=== PATIENT | male | born 1950 | race Caucasian/White ===

== ENCOUNTER → 2019-12-31 | Outpatient (CLI) | payer MEDICARE, OTHER ==
[~2019-12-31] VITALS: Ht 180 cm; Wt 84.5 kg
[~2019-12-31] MED LIST: ASPI-999 PO; METO-333 PO; MULT-1136 PO
== END | disposition home or self-care (01) ==
LOC: PREOP 05:37
PROVIDERS: ATTEND Radiology Radiation Oncology
DX: Z01.818 Encounter for other preprocedural examination (principal)

== ENCOUNTER 2020-01-05 05:46 | Outpatient (RCR) | payer MEDICARE, OTHER ==
[2020-01-07] MEDS ORDERED: ACET1TAB43 PO (12:34)
[2020-01-07] MEDS ORDERED: CIPR-226 PO (12:34)
== END 2020-01-05 09:41 | disposition home or self-care (01) ==
LOC: ONC 05:46
PROVIDERS: ATTEND Radiology Radiation Oncology
DX: C61 Malignant neoplasm of prostate (principal); I10 Essential (primary) hypertension; Z95.2 Presence of prosthetic heart valve; Z79.82 Long term (current) use of aspirin; Z79.899 Other long term (current) drug therapy
CPT/HCPCS: 76873; G0463; 87635; 99205

== ENCOUNTER 2020-01-07 11:28 | Day surgery (SDC) | payer MEDICARE, OTHER ==
[2020-01-07] VITALS (12 sets, daily range): BP systolic 117–157; BP diastolic 74–93
[~2020-01-07] VITALS: Ht 180 cm; Wt 84.5 kg
[2020-01-07] MEDS ORDERED: LEVOFLOXACIN 500 MG/100 ML IV 100 ML IV ONE (12:15)
[2020-01-07] MEDS ORDERED: CATHETER FLUSH 10 ML SYR IV PRN (12:30)
--- NOTE | 2020-01-07 12:31 | Progress Note-Pre Operative ---
Pre-Operative Progress Note H&P Reviewed The H&P was reviewed, patient examined and no changes noted. Date Seen by Provider: Jan 07, 2020 Time Seen by Provider: 12: Date H&P Reviewed: Jan 07, 2020 Time H&P Reviewed: 12:31 Pre-Operative Diagnosis: Prostate cancer cT2b, PSA 6.7, [place] 7 (3+4) HEIDY GREENFIELD MD Jan 07, 2020 12:31
[2020-01-07] MEDS ORDERED: CIPR-226 PO (12:34)
[2020-01-07] MEDS ORDERED: ACET1TAB43 PO (12:34)
--- NOTE | 2020-01-07 12:36 | Discharge Inst-Simple/Standard ---
Discharge Inst-Standard Reconcile Patient Problems Problems Reviewed?: Yes Discharge Medications New, Converted or Re-Newed RX: RX Given to Pt/Family Patient Instructions/Follow Up Plan of Care/Instructions/FU: 1)One month post implant scan at [facility] cancer center 02/03/20 at 10:00 a.m. 2)Follow up with Dr. Jeong 02/04/20 at 1:00 p.m. Activity as Tolerated: Yes Discharge Diet: No Restrictions Other Inst to Patient Please instruct patient on cummins catheter removal on Sunday01/12/20. HEIDY GREENFIELD MD Jan 07, 2020 12:36
[2020-01-07] MEDS: LACTATED RINGERS 1,000 ML IV PRN ×3 (12:39→15:30)
[2020-01-07] MEDS ORDERED: MIDAZOLAM 2 MG/2 ML (VERSED) VIAL ONE ×2 (12:58→13:41)
[2020-01-07] MEDS ORDERED: MIDAZOLAM 2 MG/2 ML (VERSED) VIAL IV ONE (13:15)
[2020-01-07] MEDS ORDERED: SEVOFLURANE (ULTANE) 15 ML INHAL SOLN ONE ×6 (13:40→14:53)
[2020-01-07] MEDS ORDERED: proPOfol 200 MG/20 ML (DIPRIVAN) VIAL IV ONE (13:40)
[2020-01-07] MEDS ORDERED: LIDOCAINE PF 2% 5 ML (XYLOCAINE) VIAL ONE (13:40)
[2020-01-07] MEDS ORDERED: fentaNYL INJECTION 100 MCG/2 ML AMP ONE (13:40)
[2020-01-07] MEDS ORDERED: ONDANSETRON 4 MG/2 ML (SDV) Z0FRAN ONE (13:40)
[2020-01-07] MEDS ORDERED: BACITRACIN OINTMENT 28 GM TUBE ONE (13:41)
[2020-01-07] MEDS ORDERED: PHENYLEPHRINE 100 MCG/ML 10 ML (ANESTHESIA) SYR ONE (14:20)
[2020-01-07] MEDS ORDERED: MEPERIDINE (DEMEROL) INJ 50 MG/ML IVP ONE (15:30)
[2020-01-07] MEDS ORDERED: fentaNYL INJECTION 100 MCG/2 ML AMP IVP ONE (15:30)
[2020-01-07] MEDS ORDERED: ONDANSETRON 4 MG/2 ML (SDV) Z0FRAN IVP PRN (15:30)
[2020-01-07] MEDS ORDERED: morphine INJ 10 MG/ML 1ML (SYR OR VIAL) IVP ONE (15:30)
--- NOTE | 2020-01-07 15:48 | Anesthesia-General Post-Op ---
General Patient Condition Mental Status/LOC: Same as Preop Cardiovascular: Satisfactory Nausea/Vomiting: Absent Respiratory: Satisfactory Pain: Controlled Complications: Absent Post Op Complications Complications None Follow Up Care/Instructions Patient Instructions None needed. Anesthesia/Patient Condition Patient Condition Patient is doing well, no complaints, stable vital signs, no apparent adverse anesthesia problems. No complications reported per nursing. RUBIA RIOS CRNA Jan 07, 2020 15:48
--- NOTE | 2020-01-07 15:52 | Progress Note-Post Operative ---
Post-Operative Progess Note Surgeon (s)/Ice Sculptor (s) Surgeon HEIDY GREENFIELD MD Ice Sculptor: Sonja OWENS MD Pre-Operative Diagnosis Prostate cancer cT2b, PSA 6.7, [place] 7 (3+4) Post-Operative Diagnosis Same as pre-op Procedure & Operative Findings Date of Procedure 01/07/20 Procedure Performed/Findings (1) 67% Cesium 131 permanent prostate seed implant (2) Injection of biodegradable hydrogel prostate-rectal spacer utilizing the SpaceOAR system (3) Cystogram Prostate volume 39.6 cc Anesthesia Type General Estimated Blood Loss Estimated blood loss (mL): Minimal Specimens/Packing Specimens Removed N/A Packing: N/A HEIDY GREENFIELD MD Jan 07, 2020 15:52
--- NOTE | 2020-01-07 16:17 | Diagnostic Imaging Report ---
INDICATION: Prostate cancer. Intraoperative fluoroscopy used during radiation seed implantation of the prostate gland. Single foci view obtained demonstrates multiple radiation seed implants for prostate gland. 12 seconds of fluoroscopy time was used. IMPRESSION: Intraoperative fluoroscopy view demonstrates radiation seed implantation as described above. Dictated by: Dictated on workstation # [id number]
[2020-01-07] MEDS ORDERED: APAP 300 MG/CODEINE 30 MG (TYLENOL #3) TAB PO ONE (16:45)
[2020-01-07] MEDS ORDERED: APAP 300 MG/CODEINE 30 MG (TYLENOL #3) TAB ONE (16:52)
== END 2020-01-07 17:45 ==
LOC: SDC 11:28
PROVIDERS: ATTEND Radiology Radiation Oncology
DX: C61 Malignant neoplasm of prostate (principal); I10 Essential (primary) hypertension; M06.9 Rheumatoid arthritis, unspecified; G62.9 Polyneuropathy, unspecified; Z79.82 Long term (current) use of aspirin; Z79.899 Other long term (current) drug therapy; Z80.3 Family history of malignant neoplasm of breast
CPT/HCPCS: 55874; 76000; 76965; 77290; 77318; 77332; 77370; 77470; 77778; 87081; C1715 ×2; C2643

== ENCOUNTER → 2020-01-14 | Outpatient (CLI) | payer MEDICARE, OTHER ==
[~2020-01-14] MED LIST changes: +ACET1TAB43 PO; +CIPR-226 PO
--- NOTE | 2020-01-14 12:33 | Diagnostic Imaging Report ---
INDICATION: Incontinence. FINDINGS: Limited pelvic ultrasound was performed to evaluate the bladder. Prevoid bladder volume is approximately 1100 mL. Postvoid volume is essentially unchanged at approximately 1100 mL. No bladder mass or wall thickening is seen. IMPRESSION: Large postvoid residual bladder volume. Dictated by: Dictated on workstation # [id number]
== END ==
LOC: RAD 12:00
PROVIDERS: ATTEND Nurse Practitioner Family
DX: R39.81 Functional urinary incontinence (principal); R35.0 Frequency of micturition
CPT/HCPCS: 76857

== ENCOUNTER 2020-02-05 20:42 | Emergency (ER) | payer MEDICARE, OTHER ==
[~2020-02-05] VITALS: Ht 180 cm; Wt 84.0 kg
[2020-02-05 21:19] LABS: BILIRUBIN,URINE NEGATIVE (NEGATIVE); COLOR,URINE YELLOW; GLUCOSE, URINE (UA) NEGATIVE (NEGATIVE); KETONES,URINE TRACE (NEGATIVE); LEUKOCYTE ESTERASE ,URINE 1+ (NEGATIVE); NITRITE,URINE POSITIVE (NEGATIVE); PROTEIN,URINE NEGATIVE (NEGATIVE)
--- NOTE | 2020-02-05 21:19 | NUR ---
PT'S UPDATED AT THIS TIME. UNDERSTANDING VOICED.
[2020-02-05 21:28] LABS: BACTERIA,URINE LARGE /HPF; CLARITY,URINE SL CLOUDY
--- NOTE | 2020-02-05 21:42 | ED GU-Male ---
General Chief Complaint: - Urinary Stated Complaint: UNABLE TO URINATE Nursing Triage Note: PT TO ED W/ C/O URINARY RETENTION ONSET THIS AFTERNOON. PT REPORTS HE'S BEING TREATED FOR PROSTATE CA, HAD A SARGENT CATHETER IN TIL YESTERDAY. REPORTS ONSET OF RETENTION TODAY. NO OTHER C/O VOICED. Source: patient History of Present Illness Date Seen by Provider: Feb 05, 2020 Time Seen by Provider: 20:57 Initial Comments This 69-year-old gentleman presents to the emergency room with complaints of urinary retention. He had brachytherapy performed by Dr. Woods and Dr. Owens January 06. He had the Sargent catheter removed yesterday. He was able to urinate x1 after Sargent removal. Since then he has not been able to void and he has been experiencing progressive pain. Allergies and Home Medications Allergies Coded Allergies: No Known Drug Allergies (Unverified , 01/07/20) Home Medications Acetaminophen with Codeine 1 Each Tablet, 1 EACH PO PRN Prescribed by: HEIDY GREENFIELD on 01/07/20 1234 Aspirin 81 Mg Tab.chew, 81 MG PO DAILY, (Reported) Cephalexin 500 Mg Capsule, 500 MG PO TID Prescribed by: AMY CHUA on 02/05/20 2146 Ciprofloxacin HCl 250 Mg Tablet, 250 MG PO BID Prescribed by: HEIDY GREENFIELD on 01/07/20 1234 Metoprolol Tartrate 25 Mg Tablet, 25 MG PO BID, (Reported) Multivitamin 1 Each Tablet, 1 EACH PO DAILY, (Reported) Patient Home Medication List Home Medication List Reviewed: Yes Review of Systems Review of Systems Constitutional: no symptoms reported EENTM: no symptoms reported Respiratory: no symptoms reported Cardiovascular: no symptoms reported Gastrointestinal: no symptoms reported Genitourinary: see HPI Musculoskeletal: no symptoms reported Skin: no symptoms reported Psychiatric/Neurological: No Symptoms Reported Endocrine: No Symptoms Reported Hematologic/Lymphatic: No Symptoms Reported Past Ombaoes-Flcygr-Fjvrjg Hx Past Med/Social Hx: Reviewed Nursing Past Med/Soc Hx Patient Social History Alcohol Use: Denies Use Recreational Drug Use: No Smoking Status: Never a Smoker 2nd Hand Smoke Exposure: No Recent Foreign Travel: No Contact w/Someone Who Travel: No Recent Infectious Disease Expo: No Recent Hopitalizations: No Physical Abuse: No Sexual Abuse: No Mistreated: No Fear: No Immunizations Up To Date Date of Influenza Vaccine: Dec 01, 2019 Seasonal Allergies Seasonal Allergies: Yes (MILD) Past Medical History Surgeries: Yes (BACK, HAND, ) Valve Replacement Respiratory: No Currently Using CPAP: No Currently Using BIPAP: No Cardiac: Yes (AORTIC VALVE REPLACEMENT) Hypertension Neurological: No Sexually Transmitted Disease: No HIV/AIDS: No Genitourinary: Yes (PROSTATE CANCER) Prostate Problems Gastrointestinal: No Musculoskeletal: Yes (HANDS) Arthritis Endocrine: No HEENT: Yes (GLASSES) Loss of Vision: Denies Hearing Impairment: Denies Cancer: Yes Prostate Did You Recieve Any Treatments: Yes (Brachytherapy) Psychosocial: No Integumentary: No Blood Disorders: No Adverse Reaction/Blood Tranf: No (N/A) Physical Exam Vital Signs Vital Signs - First Documented 02/05/20 21:06 Temp 36.8 Pulse 102 Resp 22 B/P (MAP) 163/102 (122) Pulse Ox 98 O2 Delivery Room Air Capillary Refill : Less Than 3 Seconds Height, Weight, BMI Height: '" Weight: lbs. oz. kg; 25.00 BMI Method: General Appearance: WD/WN, no apparent distress HEENT: normal ENT inspection Neck: normal inspection Cardiovascular: regular rate, rhythm, no edema Respiratory: lungs clear, normal breath sounds, no respiratory distress Gastrointestinal: normal bowel sounds, non tender (After bladder was drained), soft Extremities: normal inspection, no pedal edema Neurologic/Psychiatric: diamond blender II-XII nml as tested, no motor/sensory deficits, alert, normal mood/affect, oriented x 3 Skin: normal color, warm/dry Progress/Results/Core Measures Suspected Sepsis Recent Fever Within 48 Hours: No Infection Criteria Present: None New/Unexplained Altered Menta: No Sepsis Screen: No Definite Risk SIRS Temperature: Pulse: 102 Respiratory Rate: 22 Blood Pressure 163 /102 Mean: 122 Results/Orders Lab Results Laboratory Tests Test 02/05/20 21:09 Range/Units Urine Color YELLOW Urine Clarity SL CLOUDY Urine pH 6.0 5-9 Urine Specific [place] 1.015 L 1.016-1.022 Urine Protein NEGATIVE NEGATIVE Urine Glucose (UA) NEGATIVE NEGATIVE Urine Ketones TRACE H NEGATIVE Urine Nitrite POSITIVE H NEGATIVE Urine Bilirubin NEGATIVE NEGATIVE Urine Urobilinogen 0.2 < = 1.0 MG/DL Urine Leukocyte Esterase 1+ H NEGATIVE Urine RBC (Auto) NEGATIVE NEGATIVE Urine RBC NONE /HPF Urine WBC 5-10 H /HPF Urine Squamous Epithelial Cells NONE /HPF Urine Crystals NONE /LPF Urine Bacteria LARGE H /HPF Urine Casts NONE /LPF Urine Mucus NEGATIVE /LPF Urine Culture Indicated YES Micro Results Microbiology 02/05/20 Urine Culture - Preliminary, Resulted Staphylococcus lugdunensis My Orders Orders - AMY HOGUE MD Ua Culture If Indicated (02/05/20 20:57) Sargent Cath (02/05/20 20:57) Urine Culture (02/05/20 21:09) Cephalexin Capsule (Keflex Capsule) (02/05/20 21:45) Vital Signs/I&O 02/05/20 02/05/20 21:06 22:03 Temp 36.8 Pulse 102 88 Resp 22 18 B/P (MAP) 163/102 (122) 148/94 Pulse Ox 98 97 O2 Delivery Room Air Room Air Capillary Refill : Less Than 3 Seconds Blood Pressure Mean: 122 Progress Note : Progress Note Sargent catheter was immediately placed after patient was assessed. A large amount of urine was evacuated. Initially over 600 mL was drained and catheter was clamped. Catheter was opened back up prior to discharge. Urinalysis suggested UTI. Treatment was started with Keflex. Departure Impression Primary Impression: Urinary tract infection Qualified Codes: N39.0 - Urinary tract infection, site not specified Additional Impressions: Urinary retention Prostate cancer Disposition: 01 HOME, SELF-CARE Condition: Improved Departure-Patient Inst. Decision time for Depature: 21:43 Referrals: Sonja OWENS MD, DUANE E MD STEVENS, RACHEL L MD (PCP/Family) Primary Care Physician Patient Instructions: Urinary Retention, Urinary Tract Infections in Adults Add. Discharge Instructions: Keep the Sargent catheter in place until otherwise instructed by Dr. Woods or Dr. Owens. Empty the Sargent bag often. Keep the bag lower than the level of your bladder is much as possible. Call either Dr. Woods's or Dr. Owens's office in the morning for follow-up instructions. Call or return to the emergency room if you have any further problems or concerns. All discharge instructions reviewed with patient and/or family. Voiced understanding. Scripts Cephalexin (Keflex) 500 Mg Capsule 500 MG PO TID, #20 CAP Prov: AMY HOGUE MD 02/05/20 Copy Copies To 1: Sonja OWENS MD Copies To 2: HEIDY GREENFIELD MD, JOSHUA T MD Feb 05, 2020 21:42
[2020-02-05] MEDS ORDERED: CEPHALEXIN 250 MG (KEFLEX) CAP PO ONE (21:45)
[2020-02-05] MEDS ORDERED: CEPH-507 PO (21:46)
[2020-02-05 22:03] VITALS: BP 148/94
--- NOTE | 2020-02-05 22:03 | NUR ---
PT DISCHARGED TO HOME W/ CATHETER ET INSTR. PT TO TAKE MEDS PRESCRIBED ET F/U W/ DR OWENS OR GIN TOMORROW DISCUSSED. PT VOICED UNDERSTANDING
== END 2020-02-05 22:03 | disposition home or self-care (01) ==
LOC: EDUNIT# 20:42 → ER 20:45
DX: C61 Malignant neoplasm of prostate (principal); N39.0 Urinary tract infection, site not specified; I10 Essential (primary) hypertension; Z79.82 Long term (current) use of aspirin
CPT/HCPCS: 51702; 81000; 87077; 87088; 87186

== ENCOUNTER 2020-02-23 09:20 | Outpatient (RCR) | payer MEDICARE, OTHER ==
[~2020-02-23 09:20] MED LIST changes: +CEPH-507 PO
== END 2020-03-01 09:36 | disposition still patient (30) ==
LOC: ONC 09:20
PROVIDERS: ATTEND Radiology Radiation Oncology
DX: C61 Malignant neoplasm of prostate (principal)
CPT/HCPCS: 77295; 77300; 77301; 77334; 77338

== ENCOUNTER 2020-05-20 14:00 | Outpatient (RCR) | payer MEDICARE, OTHER | END 2020-05-30 | disposition home or self-care (01) | LOC: ONC 14:00 | PROVIDERS: ATTEND Radiology Radiation Oncology | DX: C61 Malignant neoplasm of prostate (principal) | CPT/HCPCS: 77336; 77385; 77386; 84153; 99213 ==

== ENCOUNTER 2020-11-18 09:12 | Outpatient (RCR) | payer MEDICARE, OTHER | END 2021-02-16 | disposition home or self-care (01) | LOC: ONC 09:12 | PROVIDERS: ATTEND Radiology Radiation Oncology | DX: C61 Malignant neoplasm of prostate (principal) | CPT/HCPCS: 84153 ==

== ENCOUNTER 2021-05-19 08:43 | Outpatient (RCR) | payer MEDICARE, OTHER | END 2021-05-26 | disposition home or self-care (01) | LOC: ONC 08:43 | PROVIDERS: ATTEND Radiology Radiation Oncology | DX: C61 Malignant neoplasm of prostate (principal) | CPT/HCPCS: G0103; G0463; 84153; 99213 ==

== ENCOUNTER 2021-11-24 08:41 | Outpatient (RCR) | payer MEDICARE, OTHER ==
[~2021-11-24 08:41] MED LIST changes: +ACET-11 PO; -ACET1TAB43 PO
== END 2021-11-25 ==
LOC: ONC 08:41
PROVIDERS: ATTEND Radiology Radiation Oncology
DX: Z51.0 Encounter for antineoplastic radiation therapy (principal); C61 Malignant neoplasm of prostate
CPT/HCPCS: G0103; G0463; 36415; 84153; 99213

== ENCOUNTER 2022-05-04 08:36 | Outpatient (RCR) | payer MEDICARE, OTHER | END 2022-05-26 | disposition home or self-care (01) | LOC: ONC 08:36 | PROVIDERS: ATTEND Radiology Radiation Oncology | DX: C61 Malignant neoplasm of prostate (principal) | CPT/HCPCS: G0103; G0463; 36415; 84153; 99213 ==